=== PATIENT | male | born 1965 | race Caucasian/White ===

== ENCOUNTER 2017-08-08 08:37 | Day surgery (SDC) | payer MEDICAID ==
[2017-08-08] MEDS ORDERED: LIDOCAINE 2% MDV (20MG/ML) 20ML VIAL IV ONE (08:38)
[2017-08-08] MEDS ORDERED: PROPOFOL 10 MG/ML VIAL IV ONE (08:38)
--- NOTE | 2017-08-09 09:30 | Operative Note ---
DATE OF SURGERY: 08/08/2017 OPERATION: COLONOSCOPY with cold snare and hemoclip. PREOPERATIVE DIAGNOSIS: Colon cancer screening, initial. POSTOPERATIVE DIAGNOSES: 1. Large sessile ascending colon polyp, status post cold snare polypectomy and hemoclip application x2. 2. Sigmoid diverticulosis, moderate. PREPARATION QUALITY: Good. ESTIMATED BLOOD LOSS: Minimum. SPECIMENS: Ascending colon polyp. COMPLICATIONS: None apparent. PROCEDURE: After informed consent was obtained from the patient, he was placed in the left lateral decubitus position in the endoscopy suite, sedated and monitored by the department of anesthesia. Digital rectal exam was unremarkable. A well-lubricated [id number] colonoscope was inserted into the rectum and advanced to the cecum. The cecum was unremarkable. Preparation quality was good. The ileocecal valve and appendiceal orifice were unrevealing. In the ascending colon, there was a sessile polyp which was approximately 1.2 to 1.4 cm in diameter. This polyp was removed in piecemeal fashion with a cold snare. Minimal bleeding was noted at the site. The wound was closed with 2 hemoclips. No persistent bleeding was noted. The polyp fragments were retrieved. The remainder of the ascending colon, transverse colon, and descending colon were unremarkable. There were moderate sigmoid diverticular changes in the sigmoid colon. There were no polyps seen. The rectum was unremarkable in forward and in J-turn views. The endoscope was straightened, the rectal ampulla deflated, and the endoscope was removed. RECOMMENDATIONS: I would suggest the patient continue on a regular diet and undergo a repeat exam in 3-5 years pending tissue histology. Given the appearance and the size, I suspect a 3-year followup will be in order. As always, thank you for allowing me to participate in the healthcare of your patients. CC: MD SHANDRA Hinojosa
== END 2017-08-08 10:12 | disposition home or self-care (01) ==
LOC: HOP 08:37
PROVIDERS: ATTEND Internal Medicine Gastroenterology
DX: Z12.11 Encounter for screening for malignant neoplasm of colon (principal); D12.2 Benign neoplasm of ascending colon; K57.30 Diverticulosis of large intestine without perforation or abscess without bleeding; I20.9 Angina pectoris, unspecified; K21.9 Gastro-esophageal reflux disease without esophagitis; I10 Essential (primary) hypertension; E78.00 Pure hypercholesterolemia, unspecified; J45.909 Unspecified asthma, uncomplicated